=== PATIENT | male | born 1995 | race African-American/Black ===

== ENCOUNTER 2021-01-09 11:05 | Emergency (ER) | payer OTHER ==
[~2021-01-09] VITALS: Ht 185.4 cm; Wt 99.8 kg
[2021-01-09 11:08] VITALS: BP 135/90
--- NOTE | 2021-01-09 11:14 | NUR ---
patient ambulated to bed 2.
--- NOTE | 2021-01-09 11:15 | NUR ---
25M C/C LLQ 10/ sharp localized abd pain x3days, pt reports that the pain is getting worse and nothing allevaites it. He denies n/v/d, SOB, chest pain. Cellulitis noted in LLQ with pustule head. PMH: asthma RX: Denies ALLX: Tramadol.
--- NOTE | 2021-01-09 11:33 | NUR ---
DR. NGUYEN AT BEDSIDE EXAMINING PT
[2021-01-09] MEDS ORDERED: KETOROLAC 60 MG/2 ML VIAL IM ONE ×2 (11:35→11:40)
[2021-01-09] MEDS ORDERED: CEPH500C16 PO (12:09)
[2021-01-09 12:18] VITALS: BP 135/90
== END 2021-01-09 12:18 | disposition home or self-care (01) ==
LOC: MED 11:05
DX: L03.311 Cellulitis of abdominal wall (principal); J45.909 Unspecified asthma, uncomplicated; Z88.5 Allergy status to narcotic agent; Z88.6 Allergy status to analgesic agent; Z79.899 Other long term (current) drug therapy
CPT/HCPCS: 96372; 99283; J1885

== ENCOUNTER 2023-01-27 14:40 | Emergency (ER) | payer OTHER ==
[~2023-01-27] VITALS: Ht 188 cm; Wt 98.4 kg
[~2023-01-27 14:40] MED LIST: CEPH500C16 PO
[2023-01-27 14:48] VITALS: BP 136/82
[2023-01-27] MEDS ORDERED: PROM118S5 PO (17:22)
[2023-01-27] MEDS ORDERED: AMOX1TAB8 PO (17:22)
--- NOTE | 2023-01-27 17:51 | NUR ---
Patient discharged with v/s stable. Written and verbal after care instructions given and explained. Patient alert, oriented and verbalized understanding of instructions. Ambulatory with steady gait. All questions addressed prior to discharge. ID band removed. Patient advised to follow up with PMD. Rx of amox-clav, promethazine given. Patient educated on indication of medication including possible reaction and side effects. Opportunity to ask questions provided and answered.
== END 2023-01-27 17:50 | disposition home or self-care (01) ==
LOC: MED 14:40
DX: H66.91 Otitis media, unspecified, right ear (principal); J06.9 Acute upper respiratory infection, unspecified; J45.909 Unspecified asthma, uncomplicated; Z88.5 Allergy status to narcotic agent; Z88.6 Allergy status to analgesic agent; Z79.899 Other long term (current) drug therapy
CPT/HCPCS: 99283

== ENCOUNTER 2023-04-23 17:31 | Emergency (ER) | payer OTHER ==
[~2023-04-23] VITALS: Ht 188 cm; Wt 97.5 kg
[~2023-04-23 17:31] MED LIST changes: +AMOX1TAB8 PO; +PROM118S5 PO
[2023-04-23 17:59] VITALS: BP 121/92; PULSE 72; RESP 20; TEMP 98; O2SAT 99
[2023-04-23] MEDS ORDERED: ACETAMINOPHEN EXTRA STRENGTH 500 MG TAB PO ONE (18:20)
--- NOTE | 2023-04-23 18:40 | NUR ---
Patient ambulated to bed 7.
--- NOTE | 2023-04-23 18:47 | NUR ---
Patient taken to X-Ray via wheelchair.
--- NOTE | 2023-04-23 19:05 | NUR ---
Patient returned from imaging.
[2023-04-23 19:15] VITALS: O2SAT 99
--- NOTE | 2023-04-23 19:25 | NUR ---
Report given to VLADIMIR Goodwin for transfer of care.
[2023-04-23] MEDS ORDERED: BACITRACIN OINT 500 UNITS/GM PKT TP ONE (19:35)
[2023-04-23] MEDS ORDERED: BACTO TP (19:43)
[2023-04-23] MEDS ORDERED: ACET-10509 PO (19:43)
--- NOTE | 2023-04-23 20:13 | NUR ---
Patient discharged with v/s stable. Written and verbal after care instructions given and explained. Patient alert, oriented and verbalized understanding of instructions. Ambulatory with steady gait. All questions addressed prior to discharge. ID band removed. Patient advised to follow up with PMD. Rx of ACETAMINOPHEN AND BACTROBAN given. Opportunity to ask questions provided and answered.
== END 2023-04-23 20:13 | disposition home or self-care (01) ==
LOC: MED 17:31
DX: S62.662A Nondisplaced fracture of distal phalanx of right middle finger, initial encounter for closed fracture (principal); S63.501A Unspecified sprain of right wrist, initial encounter; J45.909 Unspecified asthma, uncomplicated; Z79.899 Other long term (current) drug therapy; Z79.2 Long term (current) use of antibiotics; Z88.5 Allergy status to narcotic agent; Z88.6 Allergy status to analgesic agent; W18.39XA Other fall on same level, initial encounter; Y92.89 Other specified places as the place of occurrence of the external cause; Y93.89 Activity, other specified; Y99.8 Other external cause status
CPT/HCPCS: 73110; 73660; 99284

== ENCOUNTER 2023-04-25 08:03 | Emergency (ER) | payer OTHER ==
[~2023-04-25] VITALS: Ht 188 cm; Wt 97.5 kg
[~2023-04-25 08:03] MED LIST changes: +ACET-10509 PO; +BACTO TP
[2023-04-25 08:34] VITALS: BP 144/94; PULSE 85; RESP 20; TEMP 98; O2SAT 99
--- NOTE | 2023-04-25 08:42 | NUR ---
PT'S RIGHT WRIST DRESSED W/ ELIZABETH WRAP X1. +CMS
--- NOTE | 2023-04-25 08:45 | NUR ---
Patient discharged with v/s stable. Written and verbal after care instructions given and explained. Patient verbalized understanding. Ambulatory with steady gait WITH CRUTCHES. All questions addressed prior to discharge. Advised to follow up with PMD.
[2023-04-25] MEDS ORDERED: CYCL-711 PO (10:05)
[2023-04-25] MEDS ORDERED: BEN10 PO (10:05)
== END 2023-04-25 08:43 | disposition home or self-care (01) ==
LOC: MED 08:03
DX: S63.501A Unspecified sprain of right wrist, initial encounter (principal); J45.909 Unspecified asthma, uncomplicated; Z88.6 Allergy status to analgesic agent; Z88.5 Allergy status to narcotic agent; Z79.899 Other long term (current) drug therapy; X58.XXXA Exposure to other specified factors, initial encounter; Y93.89 Activity, other specified; Y92.89 Other specified places as the place of occurrence of the external cause; Y99.8 Other external cause status
CPT/HCPCS: 99283